=== PATIENT | female | born 1970 | race Caucasian/White ===

== ENCOUNTER 2020-11-24 22:14 | Emergency (ER) | payer BC ==
[2020-11-24 22:23] VITALS: BP 132/83; PULSE 78; RESP 18; TEMP 98.1
--- NOTE | 2020-11-24 23:13 | XR ---
EXAMINATION TYPE: XR clavicle RT DATE OF EXAM: 11/24/2020 COMPARISON: NONE HISTORY: Fall. Pain TECHNIQUE: 2 views FINDINGS: There is mid shaft acute fracture of the right clavicle. There is 100% inferior displacemen t of the lateral fragment. There is no dislocation. AC joint is intact. IMPRESSION: Mild displaced mid shaft fracture of the clavicle.
--- NOTE | 2020-11-24 23:13 | XR ---
EXAMINATION TYPE: XR shoulder complete RT DATE OF EXAM: 11/24/2020 COMPARISON: NONE HISTORY: Fall. Pain TECHNIQUE: 3 views FINDINGS: Glenohumeral joint is intact. Proximal humerus is intact. Scapula appears normal. There is mid shaft acute fracture of the right clavicle. IMPRESSION: Acute fracture of the right clavicle.
--- NOTE | 2020-11-24 23:25 | ED ---
Upper Extremity HPI - General Chief Complaint: Extremity Injury, Upper Stated Complaint: R shoulder injury Time Seen by Provider: 11/24/20 22:35 Source: patient Mode of arrival: ambulatory Limitations: no limitations - History of Present Illness Initial Comments: Patient is a 50-year-old female presenting to the emergency Department with complaints of right shoulder pain after she fell at about 1 hour prior to arrival. Patient states she had been drinking tonight, she was going up the stairs when she fell off the last 2 stairs and landed on a chest that was nearby. She states she did not hit her head, no loss of consciousness. Her only complaint is her right front shoulder. She denies any previous history of shoulder injuries or surgeries. She denies any right elbow or right forearm pain. She denies any chest pain or shortness of breath, no coughing. She has no further complaints. - Related Data Allergies Allergy/AdvReac Type Severity Reaction Status Date / Time Penicillins Allergy Unknown Verified 11/24/20 22:24 Review of Systems ROS Statement: Those systems with pertinent positive or pertinent negative responses have been documented in the HPI. ROS Other: All systems not noted in ROS Statement are negative. Past Medical History Past Medical History: Cancer Additional Past Medical History / Comment(s): cervical CA History of Any Multi-Drug Resistant Organisms: None Reported Past Surgical History: Bladder Surgery, Hysterectomy, Tonsillectomy, Tubal Ligation Additional Past Surgical History / Comment(s): laminectomy Past Psychological History: No Psychological Hx Reported Smoking Status: Current every day smoker Past Alcohol Use History: Daily Past Drug Use History: None Reported General Exam - General Exam Comments Initial Comments: GENERAL: Patient is well-developed and well-nourished. Patient is nontoxic and in mild distress. HEAD: Atraumatic, normocephalic. EYES: Pupils equal round and reactive to light, extraocular movements intact, sclera anicteric, conjunctiva are normal. Eyelids were unremarkable. ENT: Moist mucous membranes. NECK: Normal range of motion, supple without lymphadenopathy or JVD. LUNGS: Unlabored respirations. Breath sounds clear to auscultation bilaterally and equal. No wheezes rales or rhonchi. HEART: Regular rate and rhythm without murmurs, rubs or gallops. ABDOMEN: Soft, nontender, normoactive bowel sounds. MUSCULOSKELETAL: Patient has pain to palpation of the right clavicle, there is a deformity felt. No pain of the right shoulder, right humerus, right elbow. She is neurovascular intact. No active range of motion of the right shoulder secondary to pain. No clubbing or cyanosis. NEUROLOGICAL: Patient is alert and oriented x 3. SKIN: Warm, Dry, normal turgor, no rashes or lesions noted. Limitations: no limitations Course Vital Signs 11/24/20 22:16 Temperature 98.1 F Pulse Rate 78 Respiratory 18 Rate Blood Pressure 132/83 O2 Sat by Pulse 97 Oximetry Procedures - Orthopedic Splinting/Casting Injury #1 Side: right Upper Extremity Injury Location: clavicle Upper Extremity Immobilizer: sling/shoulder immobilizer Medical Decision Making - Medical Decision Making Patient is a 50-year-old female here for right shoulder pain after she fell off the 2 steps onto a chest. She has pain and a small deformity felt over the right clavicle. X-rays confirm a fracture to the midshaft of the right clavicle. No other fractures seen. Chest x-ray is normal, no pneumothorax. Patient be placed in a sling, follow-up with orthopedics. She [facility] in the past and wishes to go see their office. Patient has been refusing pain medications here entire stay here, I did offer her Tylenol or Motrin, she again refuses. Patient will be discharged home. She is agreeable a splenic care. Case discussed with Dr. Martinez. Disposition Clinical Impression: Right clavicle fracture Disposition: HOME SELF-CARE Condition: Stable Instructions (If sedation given, give patient instructions): Clavicle Fracture (ED) Additional Instructions: Please return to the Emergency Department if symptoms worsen or any other concerns. Wear sling for comfort and support. Apply ice to the area, recommend alternating between Tylenol and ibuprofen for discomfort. Please follow up with orthopedics as discussed. Is patient prescribed a controlled substance at d/c from ED?: No Referrals: Sergey Leone DO [Primary Care Provider] - 1-2 days Beronica Looney DO [Doctor of Osteopathic Medicine] - 1-2 days Time of Disposition: 23:57
--- NOTE | 2020-11-24 23:55 | XR ---
EXAMINATION TYPE: XR chest 1V DATE OF EXAM: 11/24/2020 COMPARISON: NONE HISTORY: Clavicle fracture. Pain. TECHNIQUE: Single view FINDINGS: Heart and mediastinum are normal. Lungs are clear of infiltrate. There is no pleural effusi on or pneumothorax. I see no rib fracture. There is mid shaft fracture right clavicle with 100% offse t. IMPRESSION: No cardiopulmonary disease.
== END 2020-11-25 | disposition home or self-care (01) ==
LOC: EC 22:14
DX: S42.021A Displaced fracture of shaft of right clavicle, initial encounter for closed fracture (principal); F17.200 Nicotine dependence, unspecified, uncomplicated; Z88.0 Allergy status to penicillin; W10.8XXA Fall (on) (from) other stairs and steps, initial encounter; Y92.009 Unspecified place in unspecified non-institutional (private) residence as the place of occurrence of the external cause
CPT/HCPCS: 71045; 99283

== ENCOUNTER 2021-04-15 06:46 | Day surgery (SDC) | payer BC ==
[2021-04-13 11:17] VITALS: BMI 28.7
[2021-04-15] MEDS ORDERED: LACTATED RINGERS 1,000 ML IV SCH (07:03)
[2021-04-15 07:30] VITALS: TEMP 97.6
[2021-04-15] MEDS ORDERED: PROPOFOL 10 MG/ML 20 ML VIAL IV ONE (08:13)
--- NOTE | 2021-04-15 08:27 | P.PCN ---
Date of Procedure: 04/15/21 Procedure(s) Performed: BRIEF HISTORY: Patient is a 51-year-old pleasant female scheduled for an elective colonoscopy as a part of screening for colorectal neoplasia. PROCEDURE PERFORMED: Colonoscopy. PREOPERATIVE DIAGNOSIS: Screening for colon cancer. IV sedation per Anesthesia. PROCEDURE: After informed consent was obtained, the patient, was brought into the endoscopy unit. IV sedation was administered by Anesthesia under continuous monitoring. Digital rectal examination was normal. Initially the Olympus CF-160 flexible video colonoscope was then inserted in the rectum, gradually advanced into the cecum without any difficulty. Careful examination was performed as the scope was gradually being withdrawn. Ileocecal valve and the appendiceal orifice were visualized and appeared normal. Prep was excellent. Mucosa of the cecum, ascending colon, transverse colon, descending colon, sigmoid colon, and rectum appeared normal. Retroflexion was performed in the rectum and no lesions were seen. The patient tolerated the procedure well. IMPRESSION: Normal-appearing colon from rectum to cecum with no evidence of colorectal neoplasia . RECOMMENDATIONS: Findings of this examination were discussed with the patient as well as a family. She was advised to have a repeat screening colonoscopy in 10 years.
[2021-04-15 08:51] VITALS: BP 128/81; PULSE 67; RESP 16
== END 2021-04-15 09:03 | disposition home or self-care (01) ==
LOC: ORWHC2ENDO 06:46
PROVIDERS: ATTEND Internal Medicine Gastroenterology
DX: Z12.11 Encounter for screening for malignant neoplasm of colon (principal); F17.210 Nicotine dependence, cigarettes, uncomplicated; Z88.0 Allergy status to penicillin
CPT/HCPCS: J2704; G0121